=== PATIENT | female | born 1945 ===

== ENCOUNTER 2021-12-31 19:32 | Emergency (ER) | payer MEDICARE ==
[~2021-12-31] VITALS: Ht 170.2 cm; Wt 118.2 kg
[2021-12-31] MEDS ORDERED: FLUCONAZOLE 150 MG TABLET PO ONE (21:00)
[2021-12-31] MEDS ORDERED: CLOTRIMAZOLE 1% 15 GM CREAM TP ONE (21:00)
[2021-12-31] MEDS ORDERED: IPRATROPIUM BROMIDE 0.5 MG/2.5 ML NEB SOLUTION NEB ONE (21:45)
[2021-12-31] MEDS ORDERED: ALBUTEROL SULFATE 2.5 MG/0.5 ML NEB SOLUTION NEB ONE (21:45)
[2021-12-31 21:56] VITALS: BP 117/63
== END 2022-01-01 00:16 | disposition home or self-care (01) ==
LOC: EMS 19:37
DX: B37.2 Candidiasis of skin and nail (principal); B37.9 Candidiasis, unspecified; G89.29 Other chronic pain; Z88.0 Allergy status to penicillin; Z88.2 Allergy status to sulfonamides; Z88.5 Allergy status to narcotic agent; Z88.1 Allergy status to other antibiotic agents; Z88.8 Allergy status to other drugs, medicaments and biological substances; Z90.710 Acquired absence of both cervix and uterus; Z98.890 Other specified postprocedural states
CPT/HCPCS: 94060; 94640; 99283; 99285